=== PATIENT | female | born 1970 | race Caucasian/White ===

== ENCOUNTER 2023-11-05 01:41 | Emergency (ER) | payer OTHER, SELFPAY ==
--- NOTE | ~2023-11-05 | CT_ITS ---
EXAMINATION: CT ABDOMEN AND PELVIS WITHOUT CONTRAST CLINICAL INFORMATION: Abdominal pain COMPARISON: None available. TECHNIQUE: Multidetector volumetric imaging was performed from the superior aspect of the liver through the pubic symphysis. Sagittal and coronal reformatted images were obtained on the technologist's workstation. This CT examination was performed using dose optimization techniques as appropriate, variously including the following: *Automated exposure control *Adjustment of mA and/or kV according to patient size (this includes techniques or standardized protocols for targeted exams where dose is matched to indication/reason for exam; i.e. extremities or head) *Use of iterative reconstruction technique DLP: 669 mGy-cm FINDINGS: LUNG BASES: Left lower lobe 4 mm lung nodule on image 6/92. LIVER, GALLBLADDER, AND BILIARY TREE: The liver demonstrates hypoattenuation consistent with steatosis. No focal hepatic lesion or biliary ductal dilatation is identified. Cholelithiasis is noted without appreciable surrounding inflammation. PANCREAS: Unremarkable. SPLEEN: Unremarkable. ADRENAL GLANDS: Left adrenal nodule measuring 1.9 cm measures less than 10 Hounsfield units, consistent with a benign lipid rich adenoma. Right adrenal gland is unremarkable. KIDNEYS AND URETERS: No hydronephrosis or obstructing calculus bilaterally. BLADDER: Mildly distended with slight mural prominence and subtle adjacent stranding. GASTROINTESTINAL TRACT: No convincing bowel obstruction. Large amount of stool is present in the rectum with mural prominence and mild adjacent stranding, raising concern for stercoral colitis. Moderate stool in the remainder of the colon. The appendix is unremarkable. No free fluid or free air is seen. ABDOMINAL WALL: No significant hernia is appreciated. LYMPH NODES: Normal. VASCULAR: Scattered atherosclerotic calcifications. PELVIC VISCERA: Unremarkable. OSSEOUS STRUCTURES: Mild endplate osteophytes in the spine. CT/CT abdomen pelvis wo IV con IMPRESSION: 1. Large amount of stool in the rectum with mural prominence and mild adjacent stranding, concerning for stercoral colitis. 2. Slight mural prominence of the urinary bladder with subtle adjacent stranding, which could reflect cystitis in the proper clinical setting. Correlation with urinalysis is recommended. 3. Cholelithiasis. If there is clinical concern for cholecystitis, this would be better assessed with ultrasound. 4. Left lower lobe 4 mm lung nodule. According to the UPDATED 2017 Fleischner Society recommendations, the advised follow-up imaging for solid nodules < 6 mm is: LOW RISK PATIENT: No routine follow-up. HIGH RISK PATIENT: Optional CT at 12 months. Electronically signed by: Marcelo Byrne MD 11/05/2023 04:48 AM EDT RP
[2023-11-05 01:42] VITALS: BP 166/94; PULSE 100; RESP 18; TEMP 36.8; O2SAT 98; BMI 35.1
[2023-11-05 01:59] LABS: MANUAL DIFF FLAG NO
[2023-11-05 02:02] LABS: Basophils Percent Auto 0.7 % (0-2); Eosinophils Percent Auto 0.2 % (0-4); Hematocrit 36.7 % (37.0-47.0); Hemoglobin 13.6 g/dl (12.0-16.0); Imm Gran Abs Auto 0.05 X10*3/uL (0.00-0.03); Imm Gran Pct Auto 0.8 % (0.0-0.4); Lymphocytes Absolute Auto 1.1 X10*3/uL (1.2-4.9); Mean Corpuscular HGB Conc 37.1 g/dl (31.0-35.0); Mean Corpuscular Hemoglobin 41.7 pg (27.0-33.0); Mean Platelet Volume 9.1 fL (9.4-12.3); Monocytes Absolute Auto 0.4 X10*3/uL (0.1-1.2); Neutrophils Absolute Auto 4.3 x10*3/uL (2.0-8.3); Neutrophils Percent Auto 72.3 % (45-73); Platelet Count 173 X10*3/uL (160-400); Red Blood Count 3.26 X10*6/uL (4.20-5.50); Red Cell Distribution Width 16.1 % (11.0-16.0)
[2023-11-05 02:13] LABS: Mean Corpuscular Volume 112.6 fL (80.0-98.0)
[2023-11-05 02:14] LABS: Alanine Aminotransferase 208 U/L (0-31); Albumin Level 3.9 g/dL (3.5-5.0); Alkaline Phosphatase 242 U/L (39-117); Anion Gap 20 (12-20); Aspartate Amino Transferase 364 U/L (5-31); Bilirubin Total 5.2 mg/dL (0.0-1.0); Blood Urea Nitrogen 7 mg/dL (9-16); Calcium 9.7 mg/dL (8.4-10.2); Carbon Dioxide 25 mmol/L (22-29); Chloride 93 mmol/L (96-108); Creatinine Clr Calc Pharmacy 69.4; Estimated Glomerular Filt Rate 58; Glucose Random 127 mg/dL (60-115); Lipase 160 U/L (8-78); Potassium 3.4 mmol/L (3.3-5.1); Sodium 135 mmol/L (135-145); Total Protein 7.5 g/dL (6.5-8.0)
[2023-11-05 03:25] LABS: HCG Quantitative < 2 mIU/mL
[2023-11-05] MEDS: Milk of Magnesia 30 ML ORAL.SUSP PO (03:54)
[2023-11-05] MEDS: Mineral OiL enema 133 ML ENEMA PR (03:54)
--- NOTE | 2023-11-05 04:00 | ED_ITS ---
HPI - Abdominal Pain General Chief Complaint: Abdominal Pain Stated Complaint: constipated Time Seen by Provider: 11/05/23 03:49 Source: patient Mode of arrival: ambulatory Limitations: no limitations History of Present Illness ED Provider: DR. Richards HPI narrative: 53-year-old female came in for evaluation of abdominal pain and constipation for 2 weeks. Patient is a daily drinker of heavy liquor been complaining of diffuse abdominal pain and unable to have a bowel movement, last drink was 2 days ago, no nausea, no vomiting, no history of intra-abdominal surgery. No blood in the bowel movement, no vomiting blood. Related Data Allergies Allergy/AdvReac Type Severity Reaction Status Date / Time No Known Allergies Allergy Verified 11/05/23 01:47 [No Known Allergies*] Review of Systems Review of Systems All other systems are reviewed and are negative Constitutional: Reports as per HPI and Reports no additional constitutional complaints Eyes: Reports as per HPI and Reports no additional eye complaints Reports system reviewed and no additional complaints, except as documented Cardiovascular: Reports as per HPI and Reports no additional cardiovascular complaints Respiratory: Reports as per HPI and Reports no additional respiratory complaints Gastrointestinal: Reports as per HPI and Reports no additional gastrointestinal complaints Genitourinary: Reports no additional female genitourinary complaints Musculoskeletal: Reports no additional musculoskeletal complaints Skin/Breast: Reports system reviewed and no additional complaints, except as docu Psychiatric: Reports no additional psychiatric complaints Endocrine: Reports no additional endocrine complaints Hematologic/Lymphatic: Reports no additional hematologic/lymphatic complaints Allergic/Immunologic: Reports no additional allergic/immunologic complaints Reports system reviewed and no additional complaints, except as documented and Reports Abnormal speech present [facility] Social History Social History Alcohol intake: current Alcohol intake frequency: 3 or more drinks per day Alcohol type: hard liquor Smoked in Last 30 Days: No Use of substances other than those prescribed or required for medical reasons: No Advance Directives: No Advance Directives Information Provided: No Do you have a plan to hurt others: No Plan Physical Exam ED Vital Signs: Vital Signs - 24 hr 11/05/23 01:42 11/05/23 07:22 Temperature 98.2 F Pulse Rate 100 79 Respiratory Rate 18 16 Blood Pressure 166/94 H 128/60 Pulse Oximetry 98 99 Oxygen Delivery Method Room Air Room Air BMI result Body Mass Index 35.1 Vital signs have been reviewed and appear to be correct. Blood pressure elevated. Heart rate normal. Respiratory rate normal. Temperature normal. Oxygen saturation normal. Appearance: Alert. Oriented X3. No acute distress. Head: Normal external exam. Normocephalic. Atraumatic. No Brown signs noted. No raccoon eyes noted Eyes: PERRLA. EOMI. Conjunctiva and sclera normal. Eyelids normal. ENT: TM's Normal. Pharynx normal. Uvula midline. Moist mucous membranes. No trismus noted. No drooling noted. No muffled voice noted. Neck: Normal inspection. Neck supple. FROM. No adenopathy. Thyroid Normal. No meningeal signs. No neck mass noted. CVS: Normal heart rate and rhythm. Heart sound normal. No murmurs noted. Pulses normal throughout. Respiratory: No respiratory distress. Painless inspiration. Breath sounds normal. No wheezes/rales/rhonchi noted. Chest nontender. No accessory muscle usage noted or decreased air movement noted. Abdomen: Soft and nontender. Bowel sounds normal in all 4 quadrants. No distention noted. No organomegaly noted. No visible injury noted. Back: No CVA tenderness. Full range of motion noted. Skin: Skin warm and dry. Normal skin color. Normal skin turgor. No rashes/lesions/lacerations noted. Extremities: No lower extremity edema. Extremities exhibit normal range of motion. Extremities nontender. Neuro: Oriented X 3. Cranial nerve exam: II-XII are grossly intact No motor deficit. No sensory deficit. Reflexes normal. Course Reevaluation(s) Reevaluation #1: 1. 53-year-old female daily alcohol drinker came from home for abdominal pain and constipation for 2 weeks, rectal exam revealed hard load of stool in the vault, patient had disimpaction in the ED, was given rectal enema, and milk of magnesia with no relief of her symptoms, GoLYTELY was prescribed to the patient in the emergency department, patient signed out to Dr. Garcia to follow-up on the patient. 2. Elevation of LFTs And lipase which is secondary to daily alcohol consumption CT reveals no inflammatory change around the pancreas and patient has no epigastric pain or nausea or vomiting. Time: 07:41 Medical Decision Making Differential Diagnosis Differential Diagnoses: The differential diagnosis associated with the presentation includes ( Constipation, small-bowel obstruction, colitis, diverticulitis, complicated pancreatitis, electrolyte derangement, severe anemia.) Admission/Observation Consideration of admission/observation: Escalation of care including admission/observation considered Lab Data MDM Lab Attestation statement: I reviewed the patient's lab results. 11/05/23 01:55 11/05/23 01:55 Labs: Lab Results 11/05/23 Range/Units 01:55 WBC 6.0 (4.8-10.8) X10*3/uL RBC 3.26 L (4.20-5.50) X10*6/uL Hgb 13.6 (12.0-16.0) g/dl Hct 36.7 L (37.0-47.0) % MCV 112.6 H (80.0-98.0) fL MCH 41.7 H (27.0-33.0) pg MCHC 37.1 H (31.0-35.0) g/dl RDW 16.1 H (11.0-16.0) % Plt Count 173 (160-400) X10*3/uL MPV 9.1 L (9.4-12.3) fL Immature Gran % (Auto) 0.8 H (0.0-0.4) % Neut % (Auto) 72.3 (45-73) % Lymph % (Auto) 19.0 L (20-40) % Fult[place] % (Auto) 7.0 (2-11) % Eos % (Auto) 0.2 (0-4) % Baso % (Auto) 0.7 (0-2) % Lymph # (Auto) 1.1 L (1.2-4.9) X10*3/uL [place] # (Auto) 0.4 (0.1-1.2) X10*3/uL Eos # (Auto) 0.0 (0.0-0.4) X10*3/uL Baso # (Auto) 0.0 (0.0-0.2) X10*3/uL Abs Immat Gran (auto) 0.05 H (0.00-0.03) X10*3/uL Absolute Neuts (auto) 4.3 (2.0-8.3) x10*3/uL Absolute Nucleated RBC 0.000 (0.0-0.012) X10*3/uL Nucleated RBC % (auto) 0.0 (0.0-0.2) /100WBC Sodium 135 (135-145) mmol/L Potassium 3.4 (3.3-5.1) mmol/L Chloride 93 L (96-108) mmol/L Carbon Dioxide 25 (22-29) mmol/L Anion Gap 20 (12-20) BUN 7 L (9-16) mg/dL Creatinine 1.01 (0.5-1.4) mg/dL Estim Creat Clear Calc 69.4 Estimated GFR 58 Random Glucose 127 H (60-115) mg/dL Calcium 9.7 (8.4-10.2) mg/dL Total Bilirubin 5.2 H (0.0-1.0) mg/dL AST 364 H (5-31) U/L ALT 208 H (0-31) U/L Alkaline Phosphatase 242 H (39-117) U/L Total Protein 7.5 (6.5-8.0) g/dL Albumin 3.9 (3.5-5.0) g/dL Lipase 160 H (8-78) U/L Beta HCG, Quant < 2 mIU/mL Independent Interpretation I performed an independent interpretation of an: CT Scan ( Abdomen and pelvis::1. Large amount of stool in the rectum with mural prominence and mild adjacent stranding, concerning for stercoral colitis. 2. Slight mural prominence of the urinary bladder with subtle adjacent stranding, which could reflect cystitis in the proper clinical setting. Correl) Radiology Impression Discussion of test interpretation with radiology: I have reviewed the radiologist's reading. Medications Administered Discontinued Medications Generic Name Dose Route Start Last Admin Trade Name Freq PRN Reason Stop Dose Admin Bisacodyl 10 mg 11/05/23 05:21 11/05/23 05:25 Bisacodyl 10 Mg Supp.Rect NC 11/05/23 05:22 10 mg ONCE ONE Administration Sodium Chloride 1,000 mls @ 999 mls/hr 11/05/23 06:20 11/05/23 06:39 Ns IV 11/05/23 07:20 999 mls/hr .Q1H1M ONE Administration Magnesium Hydroxide 30 ml 11/05/23 03:49 11/05/23 03:54 Milk Of Magnesia 30 Ml Oral.Susp PO 11/05/23 03:50 30 ml ONCE ONE Administration Mineral Oil 133 ml 11/05/23 03:49 11/05/23 03:54 Mineral Oil Enema 133 Ml Enema NC 11/05/23 03:50 133 ml ONCE ONE Administration Ondansetron HCl 4 mg 11/05/23 05:22 11/05/23 06:20 Ondansetron Hcl 4 Mg/2 Ml Vial IVPUSH 11/05/23 05:23 4 mg ONCE ONE Administration Ondansetron HCl 4 mg 11/05/23 06:19 11/05/23 06:21 Ondansetron Hcl 4 Mg/2 Ml Vial IVPUSH 11/05/23 06:20 Not Given ONCE ONE Sodium Biphosphate/Sodium Phosphate 133 ml 11/05/23 06:20 11/05/23 06:25 Sodium Phosphate,Fulton-Dibasic 133 Ml Enema NC 11/05/23 06:21 133 ml ONCE ONE Administration Discharge Plan Discharge Clinical Impression: Constipation, Chronic alcoholic hepatitis Patient Disposition: Still a Patient Print Language: Guatemalan
[2023-11-05] MEDS: bisacodyL 10 MG SUPP.RECT PR (05:25)
--- NOTE | 2023-11-05 05:51 | PC.NURSE ---
pt given fleet enema and milk of mag w/o relief - MD then into room for rectal exam/disimpaction, hard stool removed from rectum and pt given suppository enema. pt now sitting on commode attempting to have BM.
[2023-11-05] MEDS: ondansetron HCL 4 MG/2 ML VIAL IVPUSH (06:20)
[2023-11-05] MEDS: Sodium Phosphate,Mono-Dibasic 133 ML ENEMA PR (06:25)
[2023-11-05] MEDS: 0.9 % Sodium Chloride 1,000 ML 999 ML IV (06:39)
[2023-11-05 07:22] VITALS: BP 128/60; PULSE 79; RESP 16; O2SAT 99
[2023-11-05] MEDS: LORazepam 1 MG TABLET PO (08:25)
--- NOTE | 2023-11-05 08:40 | PC.NURSE ---
Patient taking GI medication to do at home, aware
--- NOTE | 2023-11-05 08:55 | PC.NURSE ---
Pt CIWA 3 and MD aware. Pt refuses detox in hospital and to be admitted for treatment. Pt given resources for obtaining PCP, GI consultation, and booklet for recovery and rehab information. at bedside and acknowledges information as well. Pt will be sent home with withdrawal prescriptions and instructions per MD if chooses pt chooses to pursue sobriety/detox.
[2023-11-05] MEDS: PEG 3350/Na Sulf,Bicarb,Cl/KCL 4,000 ML SOLN.RECON 4000 ML PO (09:03)
[2023-11-05 09:19] VITALS: BP 128/60; PULSE 79; RESP 16; TEMP 36.6; O2SAT 99
== END 2023-11-05 09:20 | disposition home or self-care (01) ==
PROVIDERS: Emergency Provider Emergency Medicine
DX: K59.00 Constipation, unspecified (principal); K70.10 Alcoholic hepatitis without ascites; R10.9 Unspecified abdominal pain; R91.1 Solitary pulmonary nodule; K80.20 Calculus of gallbladder without cholecystitis without obstruction
CPT/HCPCS: 36415; 74176; 80053; 83690; 84702; 85025; 96374; 99285; J2405